=== PATIENT | female | born 1970 | race Asian ===

== ENCOUNTER 2019-01-04 20:52 | Emergency (ER) | payer MEDICAID ==
[~2019-01-04] VITALS: Ht 165.1 cm; Wt 98.9 kg
[2019-01-04 21:00] VITALS: BP_SYST 160
--- NOTE | 2019-01-04 21:03 | NUR ---
Patient to ER bed 01 to gown for evaluation. Side rails up.
--- NOTE | 2019-01-04 21:06 | NUR ---
Pt complains of shortness of breath and chest pressure since Thursday. Per pt, yesterday she felt dizzy and blurred vision. Pt denies fever, cough, and vomiting but feels nauseous. O2 saturation is 100% on room air. Pt speaking in full sentences. Pt is ambulatory with no difficulty. No other injuries/complaints per patient or noted.
[2019-01-04] MEDS ORDERED: NACL 0.9% 1,000 ML IV ONE (21:17)
--- NOTE | 2019-01-04 21:19 | NUR ---
ER Dr. Frausto at bedside examining patient.
[2019-01-04] MEDS ORDERED: ALBUTEROL SULFATE 0.083% 2.5 MG/3 ML VIAL.NEB IH ONE (21:30)
[2019-01-04] MEDS ORDERED: methylPREDNISolone SOD SUCC/PF 62.5 MG/ML VIAL IVP ONE (21:30)
[2019-01-04] MEDS ORDERED: IPRATROPIUM BROM 0.5 MG/2.5 ML VIAL.NEB (ATROVENT) IH ONE (21:30)
[2019-01-04 21:41] LABS: BASOPHILS % (AUTO) 0.3 % (0.0-2.0); EOSINOPHILS # (AUTO) 0.1 K/uL (0.0-0.4); HEMATOCRIT 37.3 % (36-48); HEMOGLOBIN 12.4 g/dL (12.0-16.0); LYMPHOCYTES # (AUTO) 1.6 K/uL (1.0-5.5); LYMPHOCYTES % (AUTO) 25.1 % (20.5-51.5); MEAN CORPUSCULAR HEMOGLOBIN 28 pg (27-31); MEAN CORPUSCULAR HGB CONC 33 % (32-36); MEAN CORPUSCULAR VOLUME 85 fL (79.0-98.0); MONOCYTES # (AUTO) 0.4 K/uL (0.0-1.0); MONOCYTES % (AUTO) 6.1 % (1.7-9.3); NEUTROPHILS # (AUTO) 4.3 K/uL (1.8-7.7); NEUTROPHILS % (AUTO) 66.5 % (40.0-70.0); PLATELET COUNT (AUTO) 190 K/uL (130-430); RED BLOOD CELL COUNT(AUTO) 4.39 MIL/uL (4.2-6.2); RED CELL DISTRIBUTION WIDTH 15.2 % (9.0-15.0); WHITE BLOOD COUNT (AUTO) 6.5 K/uL (4.8-10.8)
[2019-01-04] MEDS ORDERED: ALBUTEROL SULFATE 0.083% 2.5 MG/3 ML VIAL.NEB INH ONE (21:44)
[2019-01-04 22:01] LABS: CALCIUM 9.1 mg/dL (8.4-11.0); CREATININE 0.88 mg/dL (0.55-1.30); POTASSIUM 3.7 mmol/L (3.5-5.1)
[2019-01-04 22:14] LABS: ALBUMIN 3.9 g/dL (3.4-4.8); TOTAL BILIRUBIN 0.7 mg/dL (0.0-1.0)
[2019-01-04 22:18] LABS: PROTHROMBIN TIME 10.2 SECS (9.5-12.5)
[2019-01-04 22:21] LABS: BILIRUBIN,URINE NEGATIVE (NEGATIVE); BLOOD, URINE 1+ (NEGATIVE); CLARITY/URINE CLEAR (CLEAR); COLOR,URINE YELLOW (YELLOW); GLUCOSE,URINE NEGATIVE (NEGATIVE); KETONES,URINE 1+ (NEGATIVE); LEUKOCYTE ESTERASE ,URINE NEGATIVE (NEGATIVE); NITRITE, URINE NEGATIVE (NEGATIVE); PROTEIN URINE 1+ (NEGATIVE); UROBILINOGEN,URINE 0.2 (0.2-1.0)
[2019-01-04 22:35] LABS: BACTERIA,URINE FEW /HPF (None Seen); MUCUS,URINE None Seen /LPF (None Seen); RBC,URINE 0-3 /HPF (0-3); WBC,URINE 0-3 /HPF (0-3)
[2019-01-04] MEDS ORDERED: BENZ1TAB7 PO (22:47)
[2019-01-04] MEDS ORDERED: ARIP20TA4 PO (22:47)
[2019-01-04] MEDS ORDERED: LAMO200T PO (22:47)
[2019-01-04] MEDS ORDERED: DIVA500T4 PO (22:47)
[2019-01-04] MEDS ORDERED: VALS80TA2 PO (22:47)
[2019-01-05 00:07] VITALS: BP_SYST 143
--- NOTE | 2019-01-05 00:07 | NUR ---
Patient given written and verbal discharge instructions and verbalizes understanding. ER MD discussed with patient the results and treatment provided. Patient in stable condition. ID arm band removed. IV catheter removed intact and dressing applied, no active bleeding. Rx of Albuterol and Prednisone given. Patient educated on pain management and to follow up with PMD. Pain Scale 0. Opportunity for questions provided and answered. Medication side effect fact sheet provided.
== END 2019-01-05 00:07 | disposition home or self-care (01) ==
LOC: SED 20:52
DX: R06.02 Shortness of breath (principal); I27.0 Primary pulmonary hypertension; R03.0 Elevated blood-pressure reading, without diagnosis of hypertension; Z90.49 Acquired absence of other specified parts of digestive tract; Z88.0 Allergy status to penicillin; Z88.8 Allergy status to other drugs, medicaments and biological substances; Z79.899 Other long term (current) drug therapy
CPT/HCPCS: 36415; 71045; 80053; 81000; 82150; 82550; 83605; 83690; 83880; 84484; 85025; 85610; 85730; 87040; 93005; 94640; 96361; 96374; 99284; J2930; J7030; J7613